=== PATIENT | male | born 1990 | race Hispanic/Latino ===

== ENCOUNTER → 2023-09-21 14:51 | Outpatient (ROUT) | payer OTHER, SELFPAY | PROVIDERS: Visit Provider Dermatology | DX: D48.5 Neoplasm of uncertain behavior of skin (principal) | CPT/HCPCS: 87070; 87075; 87147; 87205 ==

== ENCOUNTER 2024-05-03 09:22 | Day surgery (SDC) | payer OTHER, SELFPAY ==
[2024-04-27 09:23] VITALS: BMI 73.9
--- NOTE | 2024-05-03 | PATH_ITS ---
[facility] Accession Number: [id number] No. of containers..01 Tissue . 01 Material submitted: . neck - NUCHAL SKIN . 01 Diagnosis: NUCHAL SKIN, BIOPSY: Most suggestive of acne keloidalis nuchae. . Note: Sections show dermal scarring and mixed inflammation with foreign body giant cell reaction and occasional plasma cells, and an area of defect lined by acutely inflamed granulation tissue with microabscess formation. Other diagnostic considerations could include a ruptured epidermal inclusion cyst or folliculitis. PAS stain is in progress to rule out a fungal infection, and will be reported as an addendum. MRV 05/10/2024 1530 Local . 01 Comment: The histologic material was reviewed with Dr. José Moraes, who concurs. . 01 Electronically signed: . Nedra Zhang MD, Dermatopathologist NPI- [id number] . 01 Gross description: . Received in formalin with two patient identifiers and nuchal skin, is a little to brown irregular and wrinkled, unoriented, ellipse of skin measuring 8.6 x 1.5 x 3.0 cm. The specimen inked blue and sectioned to reveal a little and yellow smooth cut surface with minimal areas of pink to red tissue with no sinus tract identified. Line Installation Supervisor sections submitted in cassettes A1-A2. ([id number]) /ANGELINA 05/04/2024 1036 Local . 01 Pathologist provided ICD-10: L73.9 . 01 CPT . 007635, [id number] Specimen Comment: A courtesy copy of this report has been sent to [phone] Performed at: [address] [address], [place], [place] [id number] MD David Wells MD Phone: [phone]
[2024-05-03 09:40] VITALS: BMI 69.5
[2024-05-03] MEDS: ACETAMINOPHEN 325 MG TABLET 975 MG PO (09:47)
[2024-05-03] MEDS: LACTATED RINGERS 1,000 ML 42 ML IV (09:56)
[2024-05-03 09:57] VITALS: BP 135/74; PULSE 83; RESP 16; TEMP 36.2; O2SAT 97
--- NOTE | 2024-05-03 10:02 | PM.PREOP ---
Pre-operative Note COVID-19 COVID-19 status: Not tested Interval Note History & Physical reviewed/Exam performed by Physician: Yes Changes to H&P: No ASA Class (for procedural sedation): III
--- NOTE | 2024-05-03 10:15 | SUR.OPER ---
pt. in wheelchair with neck flexed chin to chest, arms extended with head on end of OR table
[2024-05-03] MEDS: LIDOCAINE 1% W/EPI 20ML 20 ML INJ (10:40)
[2024-05-03] MEDS: BUPIVACAINE 0.5% (PF) 30 ML VIAL INJ (10:42)
--- NOTE | 2024-05-03 11:11 | PM.OP.1 ---
Operative Date/Time/Diagnoses Date of procedure: 05/03/24 Time of procedure: 11:11 Pre-op diagnosis: Nuchal acanthosis nigricans Post-op diagnosis: same Procedure & Clinicians Procedure: Excisional biopsy of nuchal acanthosis nigricans Same procedure as scheduled: Yes Surgeon: Fritz Monsalve Anesthesia Type: Local Operative Notes Procedure in detail: Patient is a super morbidly obese 33-year-old man who presented with nuchal acanthosis nigricans that had failed medical treatment. He was consented for excisional biopsy in the operating room. The patient was brought to the operating room in a wheelchair and the wheelchair was locked. He was positioned such that can rest his head on the operating room table in a forward leaning position across his folded arms. No preoperative antibiotics were indicated. The posterior neck was prepped and draped in the usual fashion and a time-out was performed. There were 2 apparent sinus tracts in the deepest fold of his nuchal skin. We injected a combination of 0.5% Marcaine and 1% lidocaine with epinephrine into the skin. We excised a 12 cm by 3 cm ellipse of skin to include the sinus tract openings and the abnormal appearing skin of the nuchal fold. We excised full-thickness skin down to the subcutaneous adipose tissue. In the area slightly to the left of midline where the sinus tracts were most pronounced we did follow the sinus tracts down to the fascia. Additional local was injected into the fascia of the trapezius muscle. We then achieved hemostasis with cautery. We then closed the wound in layers using multiple interrupted 3-0 Vicryl dermal sutures followed by a running 4-0 Monocryl subcuticular stitch. EBL: 5 mL Specimen: Nuchal skin Post-operative Condition: stable Disposition: PACU
[2024-05-03 11:20] VITALS: BP 139/77; PULSE 80; RESP 18; TEMP 36.2; O2SAT 96
== END 2024-05-03 11:28 | disposition home or self-care (01) ==
PROVIDERS: PCP Family Medicine; Referring Provider Surgery; Visit Provider Surgery
PROC: (CPT 21554; principal; 2024-05-03 10:45)
DX: L83 Acanthosis nigricans; E66.01 Morbid (severe) obesity due to excess calories; Z68.45 Body mass index [BMI] 70 or greater, adult; G47.33 Obstructive sleep apnea (adult) (pediatric)
CPT/HCPCS: 21554; J2250